=== PATIENT | female | born 1995 | race Caucasian/White ===

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

== ENCOUNTER 2017-02-16 03:26 | Emergency (ER) | payer BC, OTHER ==
[~2017-02-16] VITALS: Ht 167.6 cm; Wt 59.0 kg
[2017-02-16 03:28] VITALS: TEMP 36.5; Ht 167.6 cm; Wt 59.0 kg
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
[2017-02-16 04:39] LABS: BASO % 0.4 %; BASO ABS # 0.02 K/uL (0-0.2); COMPLETE YES; EOS % 2.4 %; HEMATOCRIT 32.4 % (37-47); LYMPH % 34.3 %; MEAN CORPUSCULAR HEMOGLOBIN 27.6 pg (25-34); MEAN CORPUSCULAR HGB CONC 33.6 g/dl (32-36); MEAN PLATELET VOLUME 9.9 fL (7.4-10.4); MONO % 6.5 %; NEUT % 56.4 %; PLATELET COUNT 250 K/uL (130-400); RED BLOOD COUNT 3.95 M/uL (4.2-5.4); WHITE BLOOD COUNT 4.96 K/uL (4.8-10.8)
[2017-02-16 04:58] LABS: BLOOD UREA NITROGEN 10 mg/dl (7-18); BUN/CREATININE RATIO 17.7 (10-20); CALCIUM 8.9 mg/dl (8.5-10.1); CARBON DIOXIDE 27 mmol/L (21-32); CHLORIDE 108 mmol/L (98-107); CREATININE 0.56 mg/dl (0.60-1.20); GLUCOSE 92 mg/dl (70-99); POTASSIUM 3.4 mmol/L (3.5-5.1); SODIUM 139 mmol/L (136-145)
[2017-02-16 05:15] LABS: ALB/GLOB RATIO 1.3 (0.9-2); ALKALINE PHOSPHATASE 54 U/L (45-117); ALT/SGPT 27 U/L (12-78); AST/SGOT 21 U/L (15-37)
[2017-02-16 05:38] LABS: ACETAMINOPHEN < 2 ug/ml (10-30)
[2017-02-16 08:24] LABS: PREG INTERNAL NEGATIVE QC NEG CLEAR BACKGROUND; PREG INTERNAL POSITIVE QC POS CONTROL LINE
[2017-02-16 08:25] LABS: URINE APPEARANCE CLOUDY (CLEAR); URINE BILIRUBIN NEG (NEG); URINE COLOR YELLOW; URINE EPITHELIAL CELL AUTO 20-30 /lpf (0-5); URINE NITRITE NEG (NEG); UROBILINOGEN NEG (NEG); ZZUR CULT IF INDIC CLEAN CATCH YES
[2017-02-16 08:31] LABS: REVIEW REQ? YES
[2017-02-16 08:32] LABS: MANUAL MICROSCOPIC REQUIRED? NO
[2017-02-16 08:39] LABS: URINE MUCUS PRESENT (NONE PRSENT)
[2017-02-16 08:50] LABS: BENZODIAZEPINE, URINE NEG (NEG); COCAINE,URINE NEG (NEG); PHENCYCLIDINE, URINE NEG (NEG)
--- NOTE | 2017-02-16 10:45 | EMERGENCY ROOM VISIT NOTE ---
ED Visit Note First contact with patient: 10:20 21-year-old female with depression was signed off to me from Dr. Miller at change of shift. I reexamined the patient at 1035. The patient is ready for departure to the [facility]. The patient will meet her mother at the [facility].
[2017-02-16 14:00] VITALS: BP 125/84; PULSE 94; O2SAT 94
--- NOTE | 2017-02-19 18:55 | Pharmacy Progress Note ---
ED Pharmacist Culture FollowUp Date of Service: Feb 19, 2017. Called patient regarding urine culture. Patient reports no urinary symptoms. OK to continue without antibiotics for now. Suggested outpatient follow-up for recheck of urine. Case discussed with Dr. Waters.
== END 2017-02-16 14:01 ==
LOC: C.EDB 03:27 → C.EDA 14:01
DX: F32.9 Major depressive disorder, single episode, unspecified (principal); R45.851 Suicidal ideations; Z79.3 Long term (current) use of hormonal contraceptives; Z79.899 Other long term (current) drug therapy; F12.90 Cannabis use, unspecified, uncomplicated; F14.90 Cocaine use, unspecified, uncomplicated; Z82.49 Family history of ischemic heart disease and other diseases of the circulatory system

== ENCOUNTER 2017-02-21 00:43 | Inpatient (IN) | payer BC, OTHER ==
[~2017-02-21] VITALS: Ht 167.6 cm; Wt 57.4 kg
[2017-02-21 01:53] LABS: HEMATOCRIT 35.2 % (37-47); MEAN CELL VOLUME 81.9 fL (80-100); MEAN CORPUSCULAR HEMOGLOBIN 27.7 pg (25-34); MEAN CORPUSCULAR HGB CONC 33.8 g/dl (32-36); MEAN PLATELET VOLUME 10.3 fL (7.4-10.4); PLATELET COUNT 306 K/uL (130-400); WHITE BLOOD COUNT 6.17 K/uL (4.8-10.8)
[2017-02-21 02:03] LABS: ALT/SGPT 30 U/L (12-78); AST/SGOT 16 U/L (15-37); BLOOD UREA NITROGEN 6 mg/dl (7-18); BUN/CREATININE RATIO 10.5 (10-20); CARBON DIOXIDE 23 mmol/L (21-32); CHLORIDE 107 mmol/L (98-107); GLUCOSE 95 mg/dl (70-99); POTASSIUM 3.9 mmol/L (3.5-5.1); SODIUM 141 mmol/L (136-145)
[2017-02-21 02:14] LABS: ALKALINE PHOSPHATASE 58 U/L (45-117)
[2017-02-21 02:17] LABS: ACETAMINOPHEN < 2 ug/ml (10-30)
[2017-02-21 02:24] VITALS: O2SAT 100
[2017-02-21 02:25] LABS: BENZODIAZEPINE, URINE NEG (NEG); COCAINE,URINE NEG (NEG); PHENCYCLIDINE, URINE NEG (NEG)
[2017-02-21] MEDS ORDERED: NURSING VERBAL MED ORDER ONE ×2 (02:30→18:00)
[2017-02-21 03:09] VITALS: BP 119/75; PULSE 75; TEMP 36.7; Ht 167.6 cm; Wt 57.4 kg
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
[2017-02-21] MEDS ORDERED: ACETAMINOPHEN 325 MG TAB PO PRN (04:00)
[2017-02-21] MEDS ORDERED: BISMUTH SUBSALICYLATE PER ML OMNICELL CHARGE PO PRN ×2 (04:00→16:45)
[2017-02-21] MEDS ORDERED: MAGNESIUM HYDROXIDE SUSP 30 ML UDC PO PRN ×2 (04:00→16:45)
[2017-02-21] MEDS ORDERED: ALUMINUM/MAGNESIUM SUSP 30 ML UDC PO PRN ×2 (04:00→16:45)
[2017-02-21] MEDS ORDERED: SODIUM CHLORIDE 0.65% NA SOLN 45 ML (OCEAN) PRN ×2 (04:00→16:45)
[2017-02-21] MEDS ORDERED: hydrOXYzine HCL 25 MG TAB PO PRN ×4 (04:00→16:45)
[2017-02-21] MEDS ORDERED: EFF75 PO (04:49)
[2017-02-21] MEDS: VENLAFAXINE HCL XR 150 MG CAPXR PO SCH (13:07)
[2017-02-21] MEDS ORDERED: IBUPROFEN 200 MG TAB PO PRN (13:15)
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
[2017-02-22 07:03] VITALS: BP_SYST 107; BP_SYST 95; BP_DIAS 60; BP_DIAS 72; PULSE 74; PULSE 77; TEMP 36.8
[2017-02-22] MEDS: VENLAFAXINE HCL XR 150 MG CAPXR PO SCH (10:23)
[2017-02-22 11:10] LABS: URINE APPEARANCE CLOUDY (CLEAR); URINE BILIRUBIN NEG (NEG); URINE COLOR YELLOW; URINE NITRITE NEG (NEG); URINE SPECIFIC GRAVITY 1.029 (1.000-1.030); UROBILINOGEN NEG (NEG); ZZUR CULT IF INDIC CLEAN CATCH YES
[2017-02-22 11:12] LABS: MANUAL MICROSCOPIC REQUIRED? NO; REVIEW REQ? YES
[2017-02-22 11:13] LABS: PREG INTERNAL NEGATIVE QC NEG CLEAR BACKGROUND; PREG INTERNAL POSITIVE QC POS CONTROL LINE
[2017-02-22 11:35] LABS: URINE EPITHELIAL CELL AUTO >30 /lpf (0-5)
--- NOTE | 2017-02-22 13:00 | Psychiatric Progress Notes ---
Progress Note Date of Service Feb 22, 2017. 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 Patient has signed a 72 hour notice to withdraw from treatment. Chief Complaint "I'm really good". Subjective Patient was seen & assessed interval progress reviewed with treatment team. Patient had been taking Effexor 75 mg which has been helpful for mood but not anxiety. Effexor was increased to 150 mg yesterday. Patient reports no side effects from increased dose. She reports that her mood is "pretty good." She denies suicidal ideation today and states that she "wants to live." She slept well last night. Patient reports a remote history of cutting herself on her thighs, ankles and wrist with a pencil sharpener blade when she was in high school in the context of her parents have marriage problems and her dad leaving for a time. She denies any cutting for 2 years. The patient was hospitalized at the [facility] from 02/16 to 02/18 and signed herself out of treatment. At this point she had not signed an BRIDGET for the [facility]. She denies that she has ever made a suicide attempt but has had thought of overdosing on pills. ER records from 02/16 before admission to the [place] reviewed and patient had told multiple people that she wanted to take an overdose to kill herself. Patient takes oral contraceptive. This is her placebo week and she is having her period. Review of Systems denies urinary symptoms. currently has period. Constitutional: No fever, No chills, No sweats, No weight loss, No weakness, No fatigue Cardiovascular: No chest pain, No palpitations Abdomen: No pain, No nausea, No vomiting, No diarrhea, No constipation Psychiatric: + anxiety, No depression symptoms, No anhedonism, No insomnia Integumentary: No rash, No itch Sleep Information Total Hours of Sleep: 6.50 Meal Information Percent of Breakfast Consumed: 0 Percent of Lunch Consumed: 50 Percent of Dinner Consumed: 100 Mental Status Exam During interview pt is: alert and oriented Appearance: appropriately dressed, appropriately groomed Eye contact is: good Motor behavior is: steady gait & station, no abnormal motor movements Speech: normal in rate, rhythm & volume Affect: euthymic Mood is: other (good) Thought process: goal directed, clear, coherent Thought content: reality based without delusions Suicidal thought are: denied Homicidal thoughts are: denied Hallucinations: denies auditory, denies visual Cognition: memory grossly intact, attention grossly intact, language grossly intact Intelligence estimated to be: consistent with level of education Insight: fair Judgement: fair Impression 21 year old female with depression and anxiety admitted with suicidal ideation. Plan (1) Depression The patient is admitted to [facility] ([facility]) on q 15 min checks (behavioral with suicide precautions) for safety. The patient will participate in group, recreational and milieu therapies and will be offered additional individual and family sessions as clinically appropriate. .Will increase Effexor XR to 150mg daily and discussed increased risk of suicidal thoughts. Will obtain test. 02/22 Would be helpful to have records from the [facility] as this is patient's 2nd hospitalization in 2 weeks. She is minimizing her issues and has signed a 72 hour notice to withdraw from treatment. continue Effexor XR 150 mg Family meeting- parents no fluent in Haitian so will need esl professor Patient needs outpatient therapist and prescriber. Has an intake with [facility] that was arranged by the Ioana last week. Patient was seen at [facility] for therapy and medication Spring 2016. (2) Anxiety The patient is admitted to [facility] ([facility] mental [facility]) on q 15 min checks (behavioral with suicide precautions) for safety. The patient will participate in group, recreational and milieu therapies and will be offered additional individual and family sessions as clinically appropriate. Will increase Effexor XR to 150mg daily. (3) Alcohol overdose The patient's AUDIT score suggests problematic drinking (Zone III WHO). Brief intervention was offered and accepted Intervention (if performed) was greater than 5 min in length. Brief interventions include: 1. Assess Readiness to Quit, 2. Advise: Help Patient to Reduce or Abstain from Alcohol, 3. Agree: Set Specific, Feasible Goals, 4. Assist: Anticipate barriers, Problem-Solving Solutions. Social work to 5. Arrange: Referrals to appropriate treatment. Summary of intervention: The patient is in precontemplation stage with regards to transtheoretical model of change. The patient is advised to decrease alcohol consumption due to depressant effects and risk of interactions with prescription medications. The patient agreed to consider decreasing and will be provided with recovery materials to continue to education self on how to cope with their condition without drinking. Discharge / Aftercare Planning Primary Care Physician: Name: [facility] Therapist: Name: n/a Biomedical Analytical Scientist: Name: n/a Visit Code E&M Code: 72166 Risk Factors Assessment : Yes /single/: Yes Health problems: No Mental Health Diagnoses: Yes Substance use disorders: Yes Previous attempt: No Family history of suicide: No Previous psychiatric stay: Yes Smoker: No Protective Factors Assessment Spiritism beliefs: No : No Responsible for young children: No Employed: No Stable relationships: No Supportive family: No Data Vital Signs Last 24 Hrs: Date Time Temp Pulse Resp B/P (MAP) Pulse Ox O2 Delivery O2 Flow Rate FiO2 02/22/17 07:03 36.8 74 16 95/60 77 107/72 Meds Administered Last 24 Hrs: Meds Administered (Past 24Hrs) Medications (Trade) Dose Ordered Sig/Bozena Route Start Time Stop Time Status Last Admin Dose Admin Hydroxyzine HCl (Vistaril Tab) 25 mg Q4H PRN PO 02/21/17 04:00 02/21/17 13:09 DC 02/21/17 04:07 25 MG Venlafaxine HCl (effeXOR EXTENDED REL CAP) 150 mg QAM PO 02/21/17 11:15 03/23/17 11:14 02/22/17 10:23 150 MG Diphenhydramine HCl (Benadryl Cap) 50 mg STK-MED ONCE .ROUTE 02/21/17 18:02 02/21/17 18:03 DC 02/21/17 18:06 50 MG Lab Results Last 24 Hrs: Last 24 Hours Test 02/22/17 00:00 Urine Color YELLOW Urine Appearance CLOUDY Urine pH 6.0 Urine Specific [place] 1.029 Urine Protein NEG Urine Glucose (UA) NEG Urine Ketones TRACE Urine Occult Blood 2+ Urine Nitrite NEG Urine Bilirubin NEG Urine Urobilinogen NEG Urine Leukocyte Esterase MODERATE Urine WBC (Auto) >30 /hpf Urine RBC (Auto) 5-10 /hpf Urine Hyaline Casts (Auto) 1-5 /lpf Urine Epithelial Cells (Auto) >30 /lpf Urine Bacteria (Auto) 4+ Urine Test NEG Problem Qualifiers (1) Depression: Depression Type: major depressive disorder Major depression recurrence: recurrent Major depression episode severity: severe Psychotic features: without psychotic features (2) Alcohol overdose: Injury intent: accidental or unintentional
[2017-02-23 06:45] VITALS: BP_SYST 101; BP_SYST 91; BP_DIAS 59; BP_DIAS 68; PULSE 80; PULSE 99; TEMP 36.7
[2017-02-23] MEDS: VENLAFAXINE HCL XR 150 MG CAPXR PO SCH (09:05)
--- NOTE | 2017-02-23 11:49 | Psychiatric Progress Notes ---
Progress Note Date of Service Feb 23, 2017. 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 Patient has signed a 72 hour notice to withdraw from treatment. Chief Complaint "Pretty good. ". Subjective Patient was seen & assessed interval progress reviewed with Treatment Team. The patient says that she is feeling pretty well, and is pleased with her stay. She has talked with her parents in [place] and they are available for a family meeting by phone at any time. Tyson says that they are OK with her being on meds "if it helps me". She feels that Effexor has been helping and denies any side effects to the new dose. She reports feeling "calm" which surprises her. 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 She denies SI/HI, denies any symptoms of thought disorder. Review of Systems Constitutional: No fever, No chills, No sweats, No weight loss, No weakness, No fatigue, No problem reported ENT: No hearing loss, No unusual epistaxis, No nasal symptoms, No sore throat, No tinnitus, No dental problems, No trouble swallowing, No problem reported Respiratory: No cough, No sputum, No wheezing, No shortness of breath, No dyspnea on exertion, No dyspnea at rest, No hemoptysis, No problem reported Cardiovascular: No chest pain, No orthopnea, No PND, No edema, No claudication , No palpitations, No problem reported Abdomen: No pain, No nausea, No vomiting, No diarrhea, No constipation, No GI bleeding, No problem reported Musculoskeletal: No joint pain, No muscle pain, No swelling, No calf pain, No problem reported Neurologic: No memory loss, No paralysis, No weakness, No numbness/tingling, No vertigo, No balance problems, No problem reported Psychiatric: No depression symptoms, No anhedonism, No anxiety, No insomnia, No substance abuse, No problem reported Integumentary: No rash, No itch, No new/changing skin lesions, No color change , No bleeding, No problem reported Sleep Information Total Hours of Sleep: 6.75 Meal Information Percent of Breakfast Consumed: 0 Percent of Lunch Consumed: 95 Percent of Dinner Consumed: 100 Mental Status Exam During interview pt is: alert and oriented, cooperative Appearance: appropriately dressed, appropriately groomed Eye contact is: good Motor behavior is: steady gait & station, no abnormal motor movements Speech: normal in rate, rhythm & volume Affect: euthymic Mood is: other (good) Thought process: goal directed, clear, coherent Thought content: reality based without delusions Suicidal thought are: denied Homicidal thoughts are: denied Hallucinations: denies auditory, denies visual Cognition: memory grossly intact, attention grossly intact, language grossly intact Intelligence estimated to be: consistent with level of education Insight: fair Judgement: fair Impression Finds the support of the milieu helpful and therapeutic. Mood is improved and without SI. 72 hr notice is in, and expires tomorrow at 1230. We would like to have a meeting by phone with her parents today to confirm that they are on board with her being on meds, and if so, will discharge before the end of her 72 hr notice. Plan (1) Depression The patient is admitted to [facility] ([facility] inpatient mental health unit) on q 15 min checks (behavioral with suicide precautions) for safety. The patient will participate in group, recreational and milieu therapies and will be offered additional individual and family sessions as clinically appropriate. .Will increase Effexor XR to 150mg daily and discussed increased risk of suicidal thoughts. Will obtain test. 02/22 Would be helpful to have records from the [facility] as this is patient's 2nd hospitalization in 2 weeks. She is minimizing her issues and has signed a 72 hour notice to withdraw from treatment. 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 Has an intake with [facility] that was arranged by the Ioana last week. Patient was seen at [facility] for therapy and medication Spring 2016. 02/23 - Continue current plan - Arrange for family meeting (2) Anxiety The patient is admitted to [facility] ([facility] mental health unit) on q 15 min checks (behavioral with suicide precautions) for safety. The patient will participate in group, recreational and milieu therapies and will be offered additional individual and family sessions as clinically appropriate. Will increase Effexor XR to 150mg daily. (3) Alcohol overdose The patient's AUDIT score suggests problematic drinking (Zone III WHO). Brief intervention was offered and accepted Intervention (if performed) was greater than 5 min in length. Brief interventions include: 1. Assess Readiness to Quit, 2. Advise: Help Patient to Reduce or Abstain from Alcohol, 3. Agree: Set Specific, Feasible Goals, 4. Assist: Anticipate barriers, Problem-Solving Solutions. Social work to 5. Arrange: Referrals to appropriate treatment. Summary of intervention: The patient is in precontemplation stage with regards to transtheoretical model of change. The patient is advised to decrease alcohol consumption due to depressant effects and risk of interactions with prescription medications. The patient agreed to consider decreasing and will be provided with recovery materials to continue to education self on how to cope with their condition without drinking. Discharge / Aftercare Planning Primary Care Physician: Name: [facility] Therapist: Name: .[facility] Intake Dray Truck Driver: Name: . Visit Code E&M Code: 48655 Risk Factors Assessment : Yes /single/: Yes Health problems: No Mental Health Diagnoses: Yes Substance use disorders: Yes Previous attempt: No Family history of suicide: No Previous psychiatric stay: Yes Smoker: No Protective Factors Assessment Bahai beliefs: No : No Responsible for young children: No Employed: No Stable relationships: No Supportive family: No Data Vital Signs Last 24 Hrs: Date Time Temp Pulse Resp B/P (MAP) Pulse Ox O2 Delivery O2 Flow Rate FiO2 02/23/17 06:45 36.7 80 16 91/59 99 101/68 Meds Administered Last 24 Hrs: Meds Administered (Past 24Hrs) Medications (Trade) Dose Ordered Sig/Bozena Route Start Time Stop Time Status Last Admin Dose Admin Diphenhydramine HCl (Benadryl Cap) 50 mg STK-MED ONCE .ROUTE 02/21/17 18:02 02/21/17 18:03 DC 02/21/17 18:06 50 MG Lab Results Last 24 Hrs: 02/21/17 01:07 02/21/17 01:07 Test 02/21/17 01:07 02/21/17 01:15 02/22/17 00:00 Red Blood Count 4.30 M/uL (4.2-5.4) Mean Corpuscular Volume 81.9 fL (80-100) Mean Corpuscular Hemoglobin 27.7 pg (25-34) Mean Corpuscular Hemoglobin Concent 33.8 g/dl (32-36) RDW Standard Deviation 38.3 fL (36.4-46.3) RDW Coefficient of Variation 12.8 % (11.5-14.5) Mean Platelet Volume 10.3 fL (7.4-10.4) Anion Gap 11.0 mmol/L (3-11) Est Creatinine Clear Calc Drug Dose 136.7 ml/min Estimated GFR () > 150.0 Estimated GFR (Non- 132.1 BUN/Creatinine Ratio 10.5 (10-20) Calcium Level 9.0 mg/dl (8.5-10.1) Total Bilirubin 0.5 mg/dl (0.2-1) Direct Bilirubin 0.1 mg/dl (0-0.2) Aspartate Amino Transf (AST/SGOT) 16 U/L (15-37) Alanine Aminotransferase (ALT/SGPT) 30 U/L (12-78) Alkaline Phosphatase 58 U/L (45-117) Total Protein 8.0 gm/dl (6.4-8.2) Albumin 4.5 gm/dl (3.4-5.0) Thyroid Stimulating Hormone (TSH) 1.900 uIu/ml (0.300-4.500) Salicylates Level < 1.7 mg/dl (2.8-20) Acetaminophen Level < 2 ug/ml (10-30) Ethyl Alcohol mg/dL 80.0 mg/dl (0-3) Urine Opiates Screen NEG (NEG) Urine Methadone, Qualitative NEG (NEG) Urine Barbiturates NEG (NEG) Urine Phencyclidine (PCP) Level NEG (NEG) Ur Amphetamine/Methamphetamine NEG (NEG) MDMA (Ecstasy) Screen NEG (NEG) Urine Benzodiazepines Screen NEG (NEG) Urine Cocaine Metabolite NEG (NEG) Urine Marijuana (THC) NEG (NEG) Urine Color YELLOW Urine Appearance CLOUDY (CLEAR) Urine pH 6.0 (4.5-7.5) Urine Specific [place] 1.029 (1.000-1.030) Urine Protein NEG (NEG) Urine Glucose (UA) NEG (NEG) Urine Ketones TRACE (NEG) Urine Occult Blood 2+ (NEG) Urine Nitrite NEG (NEG) Urine Bilirubin NEG (NEG) Urine Urobilinogen NEG (NEG) Urine Leukocyte Esterase MODERATE (NEG) Urine WBC (Auto) >30 /hpf (0-5) Urine RBC (Auto) 5-10 /hpf (0-4) Urine Hyaline Casts (Auto) 1-5 /lpf (0-5) Urine Epithelial Cells (Auto) >30 /lpf (0-5) Urine Bacteria (Auto) 4+ (NEG) Urine Test NEG (NEG) Date/Time Source Procedure Growth Status 02/22/17 00:00 Urine , Clean Catch Urine Culture - Preliminary Gram Negative Bacilli Resulted Problem Qualifiers (1) Depression: Depression Type: major depressive disorder Major depression recurrence: recurrent Major depression episode severity: severe Psychotic features: without psychotic features (2) Alcohol overdose: Injury intent: accidental or unintentional
[2017-02-23] MEDS ORDERED: SULFAMETHOXAZOLE/TRIMETHOPRIM DS 800/160MG TAB PO ONE (14:15)
[2017-02-23] MEDS: SULFAMETHOXAZOLE/TRIMETHOPRIM DS 800/160MG TAB PO SCH (22:01)
[2017-02-24 06:42] VITALS: BP_SYST 102; BP_SYST 105; BP_DIAS 67; BP_DIAS 71; PULSE 80; PULSE 95; TEMP 36.7
[2017-02-24] MEDS ORDERED: SULF-183 PO (09:12)
[2017-02-24] MEDS ORDERED: EFF75 PO (09:12)
[2017-02-24] MEDS: VENLAFAXINE HCL XR 150 MG CAPXR PO SCH (09:18)
[2017-02-24] MEDS: SULFAMETHOXAZOLE/TRIMETHOPRIM DS 800/160MG TAB PO SCH (09:18)
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
== END 2017-02-24 10:05 | disposition home or self-care (01) | DRG 885 ==
LOC: C.EDB 00:45 → C.MHU 02:21 → EDBEDREQ 03:06
PROVIDERS: ADMIT Psychiatry & Neurology Psychiatry; ATTEND Psychiatry & Neurology Psychiatry
DX: F33.2 Major depressive disorder, recurrent severe without psychotic features (principal); F41.9 Anxiety disorder, unspecified; F10.10 Alcohol abuse, uncomplicated; T51.0X1A Toxic effect of ethanol, accidental (unintentional), initial encounter; Z91.5 Personal history of self-harm; Z91.410 Personal history of adult physical and sexual abuse; Z86.69 Personal history of other diseases of the nervous system and sense organs; Z79.3 Long term (current) use of hormonal contraceptives; Z79.899 Other long term (current) drug therapy; Z82.49 Family history of ischemic heart disease and other diseases of the circulatory system